=== PATIENT | female | born 1990 | race African-American/Black ===

== ENCOUNTER 2020-07-18 19:03 | Emergency (ER) | payer MEDICAID ==
[~2020-07-18] VITALS: Ht 167.6 cm; Wt 59.0 kg
[2020-07-18] MEDS ORDERED: TETRACAINE 0.5% OPHTH DROPS 4ML RIGHTEYE ONE (19:45)
[2020-07-18] MEDS ORDERED: FLUORESCEIN SODIUM 1MG/STRIP RIGHTEYE ONE (19:45)
[2020-07-18 20:42] LABS: HCG SCREEN NEGATIVE
[2020-07-18 21:01] VITALS: BP 118/96
== END 2020-07-18 21:02 | disposition home or self-care (01) ==
LOC: ER 19:03
DX: S00.83XA Contusion of other part of head, initial encounter (principal); V49.9XXA Car occupant (driver) (passenger) injured in unspecified traffic accident, initial encounter; Y93.89 Activity, other specified; Y92.89 Other specified places as the place of occurrence of the external cause; Y99.8 Other external cause status
CPT/HCPCS: 70486; 81025; 84703; 99285